=== PATIENT | male | born 1950 | race Caucasian/White ===

== ENCOUNTER 2016-10-20 13:20 | Emergency (ER) | payer MEDICARE ==
[2016-10-20] MEDS ORDERED: Sodium Chloride 0.9% 10 ML Syringe FLUSH PRN (13:23)
[2016-10-20 13:29] VITALS: BP 136/96
[2016-10-20] MEDS ORDERED: Aspirin 81 MG Tab.Chew PO ONE (13:48)
[2016-10-20] MEDS ORDERED: Sodium Chloride 0.9% 500 ML IV ONE (13:48)
--- NOTE | 2016-10-20 14:01 | EDM.PDOC ---
ED HPI NEURO - General Chief Complaint: Neurological Problem Stated Complaint: [facility] Time Seen by Provider: 10/20/16 13:21 Source of Information: Reports: Patient, RN notes reviewed - History of Present Illness INITIAL COMMENTS - FREE TEXT/NARRATIVE: 66-year-old male has been brought in by EMS with acute stroke symptoms. According to his history last known time of wellness was around 12 noon mountain time. He states that he was fine all morning. Then when he went outside to do some "chores " right around 12 noon "the wind blew him over" causing him to fall to the ground. A passerby saw him lying on the ground apparently unable to get up. EMS was called. Upon their arrival he was lying in a bed of leaves and found to have left facial droop, slightly slurred speech and left upper extremity weakness. He was transported here immediately without further incident. He denies chest pain or difficulty breathing. He has history of chronic atrial fib. He is on xarelto twice daily. He denies missing any recent doses. He states he also takes occasional baby aspirin but not every day. He's had previous cardiac bypass surgery about 11 years ago. He is also on medication for hypertension and hyperlipedemia. - Related Data Allergies/ADRs: Allergies Allergy/AdvReac Type Severity Reaction Status Date / Time No Known Allergies Allergy Verified 01/18/15 09:14 Home Meds: Home Meds Albuterol Inhaler. 2 puff INH Q6H PRN 10/20/16 [History] Apixaban [Eliquis] 5 mg PO BID 10/20/16 [History] Aspirin [Halfprin] 81 mg PO DAILY 10/20/16 [History] Budesonide/Formoterol [Symbicort 80-4.5 MCG] 1 puff INH BID 10/20/16 [History] Carvedilol 6.25 mg PO BID 10/20/16 [History] Doxazosin Mesylate [Cardura] 4 mg PO DAILY 10/20/16 [History] Furosemide [Lasix] 40 mg PO DAILY 10/20/16 [History] Lisinopril [Prinivil] 10 mg PO DAILY 10/20/16 [History] Nitroglycerin [Nitrostat] 0.4 mg SL ASDIRECTED PRN 10/20/16 [History] Simvastatin [Zocor] 40 mg PO BEDTIME 10/20/16 [History] Spironolactone [Aldactone] 12.5 mg PO DAILY 10/20/16 [History] Social & Family History - Tobacco Use Smoking Status *Q: Former Smoker Used Tobacco, but Quit: No - Alcohol Use Number of Drinks Per Day: 2 - Recreational Drug Use Recreational Drug Use: No ED ROS GENERAL - Review of Systems Review Of Systems: See Below Constitutional: Denies: fever, chills, diaphoresis HEENT: Denies: Throat pain, Vision change Respiratory: Denies: Shortness of Breath, Wheezing Cardiovascular: Denies: Chest pain GI/Abdominal: Denies: Abdominal pain, Nausea, Other Musculoskeletal: Denies: neck pain, back pain, leg pain Skin: Reports: no symptoms Neurological: Reports: Weakness (Left upper extremity), Other (Possible mild weakness left lower extremity). Denies: Numbness, Tingling ED EXAM, NEURO - Physical Exam Exam: See Below General Appearance: alert, anxious Eye Exam: bilateral eye: PERRL Ears: normal external exam Nose: normal inspection Throat/Mouth: Other (He has a left facial droop, oral mucosa moist) Head Exam: atraumatic, facial swelling (Very mild swelling of the left face). No: facial tenderness Neck: supple. No: tender midline Respiratory/Chest: no respiratory distress, lungs clear, normal breath sounds Cardiovascular: irregularly irregular GI/Abdominal: soft, non tender Neurological: alert, normal dorsiflexion, normal plantar flexion, oriented x 3, abnormal finger to nose (Unable on the left), other (Patient has good animal services officer strength bilateral, however he does have left proximal arm weakness. He's not able to lift the left arm up off the clot or maintain it in the air once lifted off of the clot, he is not able to touch his nose with the left hand, he is able to raise both legs up off the clot and has good toe strength with dorsiflexion and plantar flexion bilateral, he does have obvious left facial droop) Extremities: No: pedal edema, leg pain Skin Exam: Warm, Dry, Normal color EKG INTERPRETATION EKG Date: 10/20/16 Rhythm: a-fib QRS: LBBB Course - Vital Signs Last Recorded V/S: Last Vital Signs Temp 96.8 F 10/20/16 13:27 Pulse 81 10/20/16 13:27 Resp 18 10/20/16 13:27 BP 136/96 H 10/20/16 13:27 Pulse Ox 98 10/20/16 13:27 - Orders/Labs/Meds Orders: Active Orders 24 hr Category Date Time Status EKG 12 Lead [EKG Documentation Completion] [RC] STAT Care 10/20/16 13:24 Active Peripheral IV Care [RC] . DIRECTED Care 10/20/16 13:25 Active Head wo Cont [CT] Stat Exams 10/20/16 13:23 Taken Sodium Chloride 0.9% [Saline Flush] Med 10/20/16 13:23 Active 10 ml FLUSH ASDIRECTED PRN Peripheral IV Insertion Adult [OM.PC] Stat Oth 10/20/16 13:25 Ordered Medication Orders Sodium Chloride (Saline Flush) 10 ml FLUSH ASDIRECTED PRN PRN Reason: Keep Vein Open Labs: Laboratory Tests 10/20/16 10/20/16 10/20/16 Range/Units 13:42 13:42 13:42 WBC 8.18 (4.23-9.07) K/mm3 RBC 4.13 L (4.63-6.08) M/mm3 Hgb 13.5 L (13.7-17.5) gm/L Hct 40.5 (40.1-51.0) % MCV 98.1 H (79.0-92.2) fl MCH 32.7 H (25.7-32.2) pg MCHC 33.3 (32.2-35.5) g/dl RDW Std Deviation 49.7 H (35.1-43.9) fL Plt Count 122 L (163-337) K/mm3 MPV 10.8 (9.4-12.3) fl Neut % (Auto) 84.2 H (34.0-67.9) % Lymph % (Auto) 7.9 L (21.8-53.1) % Hill % (Auto) 6.7 (5.3-12.2) % Eos % (Auto) 0.9 (0.8-7.0) Baso % (Auto) 0.2 (0.1-1.2) % Neut # (Auto) 6.88 H (1.78-5.38) K/mm3 Lymph # (Auto) 0.65 L (1.32-3.57) K/mm3 Hill # (Auto) 0.55 (0.30-0.82) K/mm3 Eos # (Auto) 0.07 (0.04-0.54) K/mm3 Baso # (Auto) 0.02 (0.01-0.08) K/mm3 Manual Slide Review Abnormal smear PT 14.4 H (8.0-13.0) SECONDS INR 1.30 APTT 28 (22-36) SECONDS Sodium 137 (136-145) mEq/L Potassium 4.0 (3.5-5.1) mEq/L Chloride 103 (98-107) mEq/L Carbon Dioxide 21 (21-32) mEq/L Anion Gap 17.0 H (5-15) BUN 18 (7-18) mg/dL Creatinine 1.1 (0.7-1.3) mg/dL Est Cr Clr Drug Dosing 65.17 mL/min Estimated GFR (MDRD) > 60 (>60) mL/min BUN/Creatinine Ratio 16.4 (14-18) Glucose 176 H (80-115) mg/dL Calcium 8.8 (8.5-10.1) mg/dL Total Bilirubin 1.9 H (0.2-1.0) mg/dL AST 20 (15-37) U/L ALT 26 (16-63) U/L Alkaline Phosphatase 136 H (46-116) U/L Total Protein 6.6 (6.4-8.2) g/dl Albumin 3.6 (3.4-5.0) g/dl Globulin 3.0 gm/dL Albumin/Globulin Ratio 1.2 (1-2) Meds: Medications Generic Name Dose Route Start Last Admin Trade Name Freq PRN Reason Stop Dose Admin Sodium Chloride 10 ml 10/20/16 13:23 Saline Flush FLUSH ASDIRECTED PRN Keep Vein Open Discontinued Medications Generic Name Dose Route Start Last Admin Trade Name Freq PRN Reason Stop Dose Admin Aspirin 324 mg 10/20/16 13:48 10/20/16 13:53 Aspirin PO 10/20/16 13:49 324 mg ONETIME ONE Administration Sodium Chloride 500 mls @ 999 mls/hr 10/20/16 13:48 10/20/16 13:55 Normal Saline IV 10/20/16 14:18 999 mls/hr .BOLUS ONE Administration - Re-Assessments/Exams Free Text/Narrative Re-Assessment/Exam: 10/20/16 13:35. Head CT looks fine, no evidence for hemorrhage, I have Radiologist report to confirm that. However he is on eliquis twice daily for chronic atrial fib. Therefore I do not feel it is safe to give him IV thrombolytics with consideration of increased risk of intracranial hemorrhage. I 've discussed this with Dr. King, hospitalist classroom monitor for [facility] who agrees. Patient is requesting transfer to [facility] because he has been at that hospital in the past. I did remind him that his regular physician Dr. Evans now practices at [place]. He is still insisting that his preference would be to go to [facility]. Because we are only about an hour and 30 minutes into his stroke we are going to send him helicopter to get him there as quick as possible. Dr King States they will do CTA urgently upon arrival and if indicated clot retrieval may be an option. Neuro status is unchanged from arrival. BP has been stable currently 124/86. We are going to give aspirin 324 mg by mouth and also I will bolus him with 500 cc normal saline. 10/20/16 14:45 Departure - Departure Time of Disposition: 13:50 Disposition: DC/Tfer to Acute Hospital 02 Condition: serious Clinical Impression: CVA (cerebral vascular accident) Qualifiers: CVA mechanism: unspecified Qualified Code(s): I63.9 - Cerebral infarction, unspecified Forms: ED Department Discharge - My Orders Last 24 Hours: My Active Orders 10/20/16 13:23 Head wo Cont [CT] Stat Sodium Chloride 0.9% [Saline Flush] 10 ml FLUSH ASDIRECTED PRN 10/20/16 13:24 EKG 12 Lead [EKG Documentation Completion] [RC] STAT 10/20/16 13:25 Peripheral IV Care [RC] . DIRECTED Peripheral IV Insertion Adult [OM.PC] Stat - Assessment/Plan Last 24 Hours: My Active Orders 10/20/16 13:23 Head wo Cont [CT] Stat Sodium Chloride 0.9% [Saline Flush] 10 ml FLUSH ASDIRECTED PRN 10/20/16 13:24 EKG 12 Lead [EKG Documentation Completion] [RC] STAT 10/20/16 13:25 Peripheral IV Care [RC] . DIRECTED Peripheral IV Insertion Adult [OM.PC] Stat
--- NOTE | 2016-10-20 15:50 | CT ---
Head CT Technique: Multiple axial sections through the brain were obtained. Intravenous contrast was not utilized. Comparison: No previous intracranial imaging. Findings: Ventricles along with basal cisterns and sulci are mildly prominent. Minimal low density areas are scattered within the periventricular and subcortical white matter compatible with minimal small vessel ischemic demyelination change. No other abnormal parenchymal densities are seen. No other abnormal parenchymal densities are seen. No evidence of intracranial hemorrhage. No midline shift or mass effect is seen. Bone window settings were reviewed which show atherosclerotic calcification within the carotid siphon. Visualized sinuses are clear. No acute calvarial abnormality is seen. Impression: 1. Mild senescent change. Nothing acute is identified on noncontrast CT study. Agree with preliminary report issued by [facility] (preliminary report dictated on 10/20/16, 2:37 PM Central Time) Diagnostic code #2
== END 2016-10-20 14:25 ==
LOC: JD.ED 13:20
DX: I63.9 Cerebral infarction, unspecified (principal); Z79.82 Long term (current) use of aspirin; Z87.891 Personal history of nicotine dependence; Z79.899 Other long term (current) drug therapy
CPT/HCPCS: 36415; 70450; 80053; 85025; 85610; 85730; 93005; 99285; A9270; J7040

== ENCOUNTER 2018-11-29 08:42 | Day surgery (SDC) | payer MEDICARE ==
[~2018-11-29 08:42] MED LIST: Cefuroxime 10 MG/ML SYRINGE EYERT SCH; Lidocaine 1% PF 2 ML SDV INJECT SCH; Pilocarpine 4% Ophth Soln 15 ML Bot EYERT SCH
--- NOTE | 2018-11-29 10:26 | PCM.PREANE ---
Preanesthetic Assessment - Procedure Proposed Procedure: Right eye extraction cataract with implant - Anesthesia/Transfusion/Family Hx Anesthesia History: Prior Anesthesia Without Reaction Family History of Anesthesia Reaction: No Transfusion History: No Prior Transfusion(s) Intubation History: Unknown - Review of Systems General: No Symptoms Pulmonary: Cough, Other (hayfever, sinus drainage from allergies) Cardiovascular: Other (afib, history of strocke in 2016 ) Gastrointestinal: No Symptoms Neurological: Numbness (r/t HTN meds bilateral ), Paresthesia, Tingling, Gait Disturbance (history of stroke effecting right) Other: Reports: Easy Bleeding (r/t anticoagulation ) - Physical Assessment NPO Status Date: 11/28/18 NPO Status Time: 22:00 Pulse: 73 O2 Sat by Pulse Oximetry: 98 Respiratory Rate: 16 Blood Pressure: 121/86 Temperature: 36.9 C Height: 1.75 m Weight: 72.575 kg ASA Class: 3 Mental Status: Alert & Oriented x3 Airway Class: Mallampati = 1 Dentition: Reports: Normal Dentition Thyro-Mental Finger Breadths: 3 Mouth Opening Finger Breadths: 5 ROM/Head Extension: Full - Allergies Allergies/Adverse Reactions: Allergies Allergy/AdvReac Type Severity Reaction Status Date / Time No Known Allergies Allergy Verified 11/28/18 13:13 - Blood Blood Available: No - Acknowledgements Anesthesia Type Planned: MAC Pt an Appropriate Candidate for the Planned Anesthesia: Yes Alternatives and Risks of Anesthesia Discussed w Pt/Guardian: Yes Pt/Guardian Understands and Agrees with Anesthesia Plan: Yes PreAnesthesia Questionnaire Cardiovascular History: Reports: Bypass, CAD, Other (See Below) Other Cardiovascular History: hyperlipidemia Respiratory History: Reports: Bronchitis, Recurrent - HOME MEDS Home Medications: Home Meds Albuterol Sulfate [Proventil Hfa] 1 - 2 puff INH ASDIRECTED 11/28/18 [History] Apixaban [Eliquis] 5 mg PO ASDIRECTED 11/28/18 [History] Dextran 70/Hypromellose [Artificial Tears] 1 drop EYEBOTH ASDIRECTED 11/28/18 [ History] Lisinopril [Prinivil] 10 mg PO ASDIRECTED 11/28/18 [History] Perindopril Erbumine 2 mg PO ASDIRECTED 11/28/18 [History] Simvastatin [Zocor] 10 mg PO ASDIRECTED 11/28/18 [History] - CURRENT (IN HOUSE) MEDS Current Meds: Current Medications Brimonidine Tartrate (Alphagan 0.2% Ophth Soln) 0 ml EYERT ASDIRECTED DASHAWN Stop: 11/29/18 18:00 Cefuroxime Sodium (Zinacef) 0 mg EYERT ASDIRECTED DASHAWN Stop: 11/29/18 18:00 Lidocaine HCl (Xylocaine-Mpf 1%) 0 ml INJECT ASDIRECTED DASHAWN Stop: 11/29/18 18:00 Phenylephrine HCl (Terrance-Synephrine 2.5% Ophth Soln) 0 ml EYERT ASDIRECTED DASHAWN Stop: 11/29/18 18:00 Pilocarpine HCl (Pilocar 4% Ophth Soln) 0 ml EYERT ASDIRECTED DASHAWN Stop: 11/29/18 18:00 Polymyxin/Trimethoprim Sulfate (Polytrim Ophth Soln) 0 ml EYERT ASDIRECTED DASHAWN Stop: 11/29/18 18:00 Tetracaine HCl (Tetracaine 0.5% Steri-Unit Felicity) 0 ml EYERT ASDIRECTED DASHAWN Stop: 11/29/18 18:00 Tropicamide (Mydriacyl 1% Ophth Soln) 0 ml EYERT ASDIRECTED DASHAWN Stop: 11/29/18 18:00
[2018-11-29] MEDS: Polymyxin B/Trimethoprim 10 ML Bottle EYERT SCH ×3 (10:30→12:20)
[2018-11-29] MEDS: Brimonidine 0.2% Ophth Soln 5 ML Bottle EYERT SCH ×3 (10:35→12:20)
[2018-11-29] MEDS: Phenylephrine 2.5% Ophth Soln 2 ML Bot EYERT SCH ×5 (10:39→11:59)
[2018-11-29] MEDS: Tropicamide 1% Ophth Soln 15 ML Bottle EYERT SCH ×4 (10:45→11:40)
[2018-11-29] MEDS: Tetracaine HCl/PF 0.5% 4 ML Bottle EYERT SCH ×4 (11:48→12:07)
--- NOTE | 2018-11-29 12:24 | PCM.POSTAN ---
POST ANESTHESIA ASSESSMENT - MENTAL STATUS Mental Status: Alert - RESPIRATORY Respiratory Status: Respiratory Rate WNL - CARDIOVASCULAR CV Status: Pulse Rate WNL - GASTROINTESTINAL GI Status: No Symptoms - POST OP HYDRATION Hydration Status: Adequate & Stable
--- NOTE | 2018-11-29 12:25 | PCM48HPAN ---
Post Anesthesia Note - EVALUATION WITHIN 48HRS OF ANESTHETIC Vital Signs in Normal Range: Yes Patient Participated in Evaluation: Yes Respiratory Function Stable: Yes Airway Patent: Yes Cardiovascular Function Stable: Yes Hydration Status Stable: Yes Nausea and Vomiting Control Satisfactory: Yes Mental Status Recovered: Yes Pulse Rate: 73 Resp Rate: 16 Temperature: 36.9 C Blood Pressure: 121/86
[2018-11-29 12:52] VITALS: BP 119/75
== END 2018-11-29 12:38 | disposition home or self-care (01) ==
LOC: JD.SDS 08:42
PROVIDERS: ATTEND Ophthalmology
DX: H25.813 Combined forms of age-related cataract, bilateral (principal); H02.834 Dermatochalasis of left upper eyelid; H02.831 Dermatochalasis of right upper eyelid; H16.223 Keratoconjunctivitis sicca, not specified as Sjogren's, bilateral; H16.103 Unspecified superficial keratitis, bilateral; H52.11 Myopia, right eye; H31.091 Other chorioretinal scars, right eye; I10 Essential (primary) hypertension; I25.10 Atherosclerotic heart disease of native coronary artery without angina pectoris; I25.2 Old myocardial infarction; E78.5 Hyperlipidemia, unspecified; Z95.1 Presence of aortocoronary bypass graft; Z95.0 Presence of cardiac pacemaker; Z86.73 Personal history of transient ischemic attack (TIA), and cerebral infarction without residual deficits; Z87.891 Personal history of nicotine dependence; Z79.01 Long term (current) use of anticoagulants; Z79.899 Other long term (current) drug therapy; Z98.890 Other specified postprocedural states
CPT/HCPCS: 66984; C1780; J0697; J2001

== ENCOUNTER 2022-09-11 08:12 | Emergency (ER) | payer MEDICARE ==
[2022-09-11] MEDS ORDERED: Oxymetazoline 0.05% Nasal Spray 30 ML Bottle NAS ONE (08:43)
[2022-09-11 12:12] VITALS: BP 130/64; PULSE 64
== END 2022-09-11 12:03 | disposition home or self-care (01) ==
LOC: JD.ED 08:12
DX: R04.0 Epistaxis (principal); I25.810 Atherosclerosis of coronary artery bypass graft(s) without angina pectoris; E78.5 Hyperlipidemia, unspecified; Z79.01 Long term (current) use of anticoagulants; Z79.899 Other long term (current) drug therapy
CPT/HCPCS: 30901; 99283; A9270

== ENCOUNTER 2023-01-01 14:51 | Emergency (ER) | payer MEDICARE, OTHER ==
[2023-01-01 15:34] LABS: BASOPHILS ABSOLUTE AUTO 0.02 K/mm3 (0.01-0.08); BASOPHILS PERCENT AUTO 0.4 % (0.1-1.2); EOSINOPHILS ABSOLUTE AUTO 0.13 K/mm3 (0.04-0.54); EOSINOPHILS PERCENT AUTO 2.6 (0.8-7.0); HEMATOCRIT 42.7 % (40.1-51.0); HEMOGLOBIN 14.2 gm/dl (13.7-17.5); IMMATURE GRAN ABSOLUTE AUTO 0.01 K/mm3 (0.00-0.10); IMMATURE GRAN PERCENT AUTO 0.2 % (<=1.0); LYMPHOCYTES ABSOLUTE AUTO 0.74 K/mm3 (1.32-3.57); LYMPHOCYTES PERCENT AUTO 14.7 % (21.8-53.1); MEAN CORPUSCULAR HEMOGLOBIN 34.3 pg (25.7-32.2); MEAN CORPUSCULAR HGB CONC 33.3 g/dl (32.2-35.5); MEAN CORPUSCULAR VOLUME 103.1 fl (79.0-92.2); MEAN PLATELET VOLUME 11.2 fl (9.4-12.3); MONOCYTES ABSOLUTE AUTO 0.52 K/mm3 (0.30-0.82); MONOCYTES PERCENT AUTO 10.4 % (5.3-12.2); NEUTROPHILS PERCENT AUTO 71.7 % (34.0-67.9); PLATELET COUNT,PLT 130 K/mm3 (163-337); RED BLOOD CELL COUNT 4.14 M/mm3 (4.63-6.08); WHITE BLOOD CELL COUNT,WBC 5.02 K/mm3 (4.23-9.07)
[2023-01-01 17:14] VITALS: BP 110/78; PULSE 68
== END 2023-01-01 17:10 | disposition home or self-care (01) ==
LOC: JD.ED 14:51
DX: R04.0 Epistaxis (principal); I25.10 Atherosclerotic heart disease of native coronary artery without angina pectoris; Z79.899 Other long term (current) drug therapy
CPT/HCPCS: 30901; 36415; 85025; 99282; 99283

== ENCOUNTER 2023-01-11 22:26 | Emergency (ER) | payer MEDICARE, OTHER ==
[2023-01-12] MEDS ORDERED: LORazepam 1 MG Tab PO ONE (00:07)
[2023-01-12 05:07] VITALS: BP 120/91; PULSE 76
== END 2023-01-12 05:50 | disposition home or self-care (01) ==
LOC: JD.ED 22:26
DX: R04.0 Epistaxis (principal); I48.20 Chronic atrial fibrillation, unspecified; I25.810 Atherosclerosis of coronary artery bypass graft(s) without angina pectoris; E78.5 Hyperlipidemia, unspecified; Z79.01 Long term (current) use of anticoagulants; Z79.899 Other long term (current) drug therapy
CPT/HCPCS: 30901; 99283; A9270